=== PATIENT | female | born 1950 | race Caucasian/White ===

== ENCOUNTER → 2017-04-24 | Outpatient (CLI) | payer BC ==
[~2017-04-24] MED LIST: CALCIUM 600/VIT1 CAP PO; DYAZIDE 25 MG-31 CAP PO; HAIR,SKIN,NAILS PO; MULTIVITAMIN FO1 CAP PO; ZOCOR 40MG40 MG PO; [UNRECOGNIZED DRUG - OTHER] PO
== END ==
LOC: MC.RAD 08:20
DX: Z12.39 Encounter for other screening for malignant neoplasm of breast (principal)

== ENCOUNTER → 2018-07-09 | Outpatient (CLI) | payer BC | LOC: MC.RAD 11:17 | DX: Z12.31 Encounter for screening mammogram for malignant neoplasm of breast (principal) ==

== ENCOUNTER → 2019-07-11 | Outpatient (CLI) | payer BC | LOC: MC.RAD 14:57 | DX: Z12.31 Encounter for screening mammogram for malignant neoplasm of breast (principal) ==

== ENCOUNTER → 2020-08-20 | Outpatient (CLI) | payer BC | LOC: MC.RAD 13:02 | DX: Z12.31 Encounter for screening mammogram for malignant neoplasm of breast (principal); N63.20 Unspecified lump in the left breast, unspecified quadrant ==

== ENCOUNTER → 2021-05-08 | Outpatient (CLI) | payer BC ==
[~2021-05-08] MED LIST changes: +CALCIUM-500 5001 CTB PO; +COZAAR100 MG PO; +EPA FISH OIL1 SGL PO; +HAIRSKINNAILS PO; +HCTZ12.5TAB PO
== END ==
LOC: COL.RAD 06:58
DX: R19.00 Intra-abdominal and pelvic swelling, mass and lump, unspecified site (principal); N94.89 Other specified conditions associated with female genital organs and menstrual cycle; Z90.89 Acquired absence of other organs
CPT/HCPCS: Q9967

== ENCOUNTER → 2021-05-23 | Outpatient (CLI) | payer BC ==
[2021-05-23] VITALS (7 sets, daily range): BP systolic 139–160; BP diastolic 67–84; PULSE 67–74
[~2021-05-23] VITALS: Ht 170.2 cm; Wt 76.8 kg
== END ==
LOC: COL.RAD 05-14 13:30
DX: K63.89 Other specified diseases of intestine (principal); R19.07 Generalized intra-abdominal and pelvic swelling, mass and lump; Z90.89 Acquired absence of other organs
CPT/HCPCS: 32108

== ENCOUNTER → 2021-09-09 | Outpatient (CLI) | payer BC | LOC: MC.RAD 11:30 | DX: Z12.31 Encounter for screening mammogram for malignant neoplasm of breast (principal) ==

== ENCOUNTER → 2022-09-19 | Outpatient (CLI) | payer BC | LOC: MC.RAD 07:48 | DX: Z12.31 Encounter for screening mammogram for malignant neoplasm of breast (principal) ==

== ENCOUNTER → 2023-10-15 | Outpatient (CLI) | payer BC | LOC: COL.RAD 09:00 → MC.RAD 09:00 | DX: Z12.31 Encounter for screening mammogram for malignant neoplasm of breast (principal) ==